=== PATIENT | male | born 1985 | race Caucasian/White ===

== ENCOUNTER 2016-12-05 09:43 | Day surgery (SDC) | payer BC ==
[2016-12-05 11:38] VITALS: TEMP 98.3
[2016-12-05 11:52] VITALS: RESP 20; O2SAT 100
[2016-12-05 11:58] VITALS: BP 132/83; PULSE 82
== END 2016-12-05 11:59 | disposition home or self-care (01) ==
LOC: SURG 09:43
PROVIDERS: ATTEND Internal Medicine Gastroenterology
DX: Z83.71 Family history of colonic polyps (principal); K64.8 Other hemorrhoids; D12.0 Benign neoplasm of cecum
CPT/HCPCS: 45380; 99001; J2001; J2704